=== PATIENT | female | born 1965 | race Caucasian/White ===

== ENCOUNTER 2021-05-30 16:52 | Emergency (ER) | payer OTHER, SELFPAY ==
--- NOTE | ~2021-05-30 | US_ITS ---
EXAMINATION: US ABDOMEN LIMITED CLINICAL INFORMATION: Elevated bilirubin. Abdominal pain, vomiting. Evaluate gallbladder. COMPARISON: None TECHNIQUE: Real-time imaging of the right upper quadrant abdominal viscera. FINDINGS: PANCREAS: Normal. LIVER: Normal. The liver is normal in size. The liver contour is normal. Parenchymal echogenicity is normal. No focal hepatic lesion. There is no intrahepatic biliary duct dilatation seen. GALLBLADDER: There is a 2 mm nondependent noncalcified structure adherent to the wall of the gallbladder consistent with a polyp. The gallbladder is physiologically distended without evidence of stones, sludge, wall thickening or pericholecystic fluid. COMMON BILE DUCT: Normal in caliber measuring 0.2 cm in diameter. RIGHT KIDNEY: There is a 6 mm anechoic right upper pole renal cyst for which no imaging follow-up is recommended. No hydronephrosis. No renal calculi or solid parenchymal lesions. The kidney measures 9.6 cm in maximum dimension. FREE FLUID: None. US/US abdomen limited IMPRESSION: No gallstones. No biliary ductal dilatation. 2 mm gallbladder wall polyp. There are differing management algorithms advocated for in the radiology literature for small gallbladder wall polyps of this size. Some suggest annual ultrasound follow-up while others suggest no follow-up is needed.
[2021-05-30 18:51] VITALS: BP 133/52; PULSE 70; RESP 20; TEMP 36.7; O2SAT 98; BMI 18.3
[2021-05-30 19:59] VITALS: BP 131/66; PULSE 70
[2021-05-30 20:00] VITALS: BP 142/72; PULSE 72
[2021-05-30 20:04] VITALS: BP 124/77; PULSE 73
--- NOTE | 2021-05-30 20:14 | ED_ITS ---
HPI - Nausea/Vomiting/Diarrhea General Chief complaint: Nausea/Vomiting/Diarrhea Stated complaint: N V D Lightheaded Time Seen by Provider: 05/30/21 19:46 Source: patient and family Mode of arrival: ambulatory Limitations: no limitations History of Present Illness HPI Narrative: 55-year-old female with a past medical history of anxiety and depression here with complaints of nausea with dry heaves and diarrhea for the last 1 week. Patient tells me that she has been having depression and her doctor has trial 2 different antidepressants (lexapro, sertraline). Unfortunately both have caused nausea and vomiting. Since the 2nd medication she has had nausea and dry heaves. The patient denies any large amounts of vomiting. She has had 1-2 episodes of diarrhea a day. She has been feeling lightheaded with movement for the last 2 days and feels like she is dehydrated. She denies any abdominal pain, fevers, chills or urinary symptoms. Associated nausea: Yes Related Data Allergies Allergy/AdvReac Type Severity Reaction Status Date / Time No Known Allergies Allergy Verified 05/30/21 18:50 Review of Systems Review of Systems: Yes all other systems are reviewed and are negative Constitutional: Constitutional: Reports no additional constitutional complaints, Denies body ache(s), Denies chills, Denies fever(s), Denies headache(s) and Denies weakness Eyes: Eyes: Reports no additional eye complaints and Denies change in vision ENT: Reports system reviewed and no additional complaints, except as doclinette carpenter, Reports dizziness, Denies headache(s), Denies nasal congestion, Denies nasal discharge and Denies neck pain Cardiovascular: Cardiovascular: Reports no additional cardiovascular complaints, Denies chest pain, Denies leg edema and Denies dyspnea Respiratory: Respiratory: Reports no additional respiratory complaints, Denies cough and Denies dyspnea Gastrointestinal: Gastrointestinal: Reports no additional gastrointestinal complaints, Reports abdominal pain, Reports diarrhea, Reports nausea and Denies vomiting Comments: Dry heaves Genitourinary: Genitourinary: Reports no additional female genitourinary complaints and Denies urinary incontinence Musculoskeletal: Musculoskeletal: Reports no additional musculoskeletal complaints, Denies back pain, Denies arthralgias, Denies joint swelling, Denies neck pain, Denies numbness and Denies tingling Integumentary/Breasts: Skin/Breast: Reports system reviewed and no additional complaints, except as docu and Denies rash Neurologic: Reports system reviewed and no additional complaints, except as documented, Denies Abnormal speech present, Reports dizziness, Denies headache(s), Denies numbness, Denies tingling and Denies weakness PMFSH Past Medical History Attestation statement: The following information was validated with the patient. Source: old records reviewed and nursing notes reviewed Medical History Anxiety Social History Social History Advance Directives: No Advance Directives Information Provided: No Patient : No Physical Exam Vital Signs: Vital Signs: Last Vital Signs Temp 98.0 F 05/30/21 22:28 Pulse 60 05/30/21 22:28 Resp 16 05/30/21 22:28 BP 135/71 05/30/21 22:28 Pulse Ox 98 05/30/21 22:28 Body Mass Index 18.3 Const: General: cooperative and anxious Orientation/consciousness: patient oriented x3 Limitations: no limitations HENMT: Head: Yes normal to inspection Ears: hearing grossly normal bilaterally General nose exam: Normal external nose present Face and sinus: Yes normal facial exam Mouth: Normal oral and palatal mucosa present Throat: Yes posterior oropharynx normal Eyes: General: appearance normal, both eyes and all related structures Pupils: Equal, round and reactive pupils present Neck: Neck: Yes normal visual inspection Chest: Chest palpation & inspection: normal inspection of the chest Resp: Effort & Inspection: normal respiratory effort Auscultation: clear to auscultation bilaterally Cardio: Rate: regular rate Rhythm: regular rhythm Peripheral pulses: Peripheral pulses 2+ throughout GI: Inspection: Yes normal to inspection Palpation (GI): Soft to palpation and nontender Auscultation: normal bowel sounds Back/Spine/Pelvis: Thoracic/Lumbar Spine: thoracic and lumbar spine normal to inspection Skin: General skin exam: no rashes or lesions noted Neuro: General: patient oriented x3, no focal motor deficits and normal sensation to monofilament Cranial nerves: Yes Equal, round and reactive pupils present Cognition (Neuro): normal cognition Speech: No Abnormal speech present Gait exam (Neuro): Normal gait present Motor exam (neuro): 5/5 motor strength present throughout Extrem: General: Yes normal to inspection, Yes no pedal edema and Yes no calf tenderness Course Course Course Narrative: 55-year-old female here with complaints of nausea, dry heaves and diarrhea for the last week after starting a new antidepressant (lexapro, sertraline). Also feeling lightheaded and dehydrated the last few days. Exam is benign. Hemodynamically stable. No focal abdominal pain on exam. Will check labs, place PIV for antiemetic and normal saline bolus and reassess -labs show mildly elevated total bili. I did discuss this with the patient. May be medication related. Repeat abdominal exam benign. There is no pain on exam or rebound or guarding. Low suspicion for intra-abdominal pathology. Discussed with patient imaging versus observation and she would prefer to hold on any imaging at this time. Does not want a CT scan. 2300-urine unremarkable. I went to reexamine the patient. She now tells me she has upper abdominal pain and more nausea. Will check abdominal ultrasound. Will give PPI, antiemetic and repeat normal saline bolus 2350-US shows IMPRESSION: No gallstones. No biliary ductal dilatation. ? 2 mm gallbladder wall polyp. There are differing management algorithms advocated for in the radiology literature for small gallbladder wall polyps of this size. Some suggest annual ultrasound follow-up while others suggest no follow-up is needed. Spoke to patient. She tells me that her pain is improved but she still has some nausea and had several episodes of dry heaving in the room. At this point she does not feel like she can hold down any p.o. fluids. Will re-medicate for nausea and reassess. ?gastritis from recent medication changes. We again discussed imaging vs observation. She would like to hold on CT scan at this time and see if this next round of medications works. 0030-Sign out to Karli JOEL pending above MDM - Nausea/Vomiting/Diarrhea MDM Narrative Medical decision making narrative: Orthostasis Electrolyte abnormality due to GI losses Medical Records Attestation: I reviewed the patient's medical records. Lab Data Attestation: I reviewed the patient's lab results. Result diagrams: 05/30/21 20:12 05/30/21 20:12 Labs: Lab Results 05/30/21 05/30/21 05/30/21 Range/Units 20:12 20:12 20:12 WBC 10.0 (4.8-10.8) X10*3/uL RBC 5.00 (4.20-5.50) X10*6/uL Hgb 15.7 (12.0-16.0) g/dl Hct 45.6 (37-47) % MCV 91.2 (80-98) fL MCH 31.4 (27.0-33.0) pg MCHC 34.4 (31.0-35.0) g/dl RDW 12.1 (11.0-16.0) % Plt Count 274 (160-400) X10*3/uL MPV 8.4 L (9.4-12.3) fL Immature Gran % (Auto) 0.2 (0.0-0.4) % Neut % (Auto) 59.5 (45-73) % Lymph % (Auto) 28.3 (20-40) % [place] % (Auto) 11.0 (2-11) % Eos % (Auto) 0.7 (0-4) % Baso % (Auto) 0.3 (0-2) % Lymph # (Auto) 2.8 (1.2-4.9) X10*3/uL [place] # (Auto) 1.1 (0.1-1.2) X10*3/uL Eos # (Auto) 0.1 (0.0-0.4) X10*3/uL Baso # (Auto) 0.0 (0.0-0.2) X10*3/uL Abs Immat Gran (auto) 0.02 (0.00-0.03) X10*3/uL Absolute Neuts (auto) 5.9 (2.0-8.3) X10*3/uL Absolute Nucleated RBC 0.000 (0.0-0.012) X10*3/uL Nucleated RBC % (auto) 0.0 (0.0-0.2) /100WBC Sodium 141 (135-145) mmol/L Potassium 4.1 (3.3-5.1) mmol/L Chloride 104 (96-108) mmol/L Carbon Dioxide 26 (22-29) mmol/L Anion Gap 15 (12-20) BUN 15 (9-16) mg/dL Creatinine 1.02 (0.5-1.4) mg/dL Estim Creat Clear Calc 48.1 Estimated GFR 56 Random Glucose 98 (60-115) mg/dL Calcium 10.4 H (8.4-10.2) mg/dL Magnesium 2.1 (1.6-2.6) mg/dL Total Bilirubin 4.0 H (0.0-1.0) mg/dL Direct Bilirubin 0.8 H (0.0-0.5) mg/dL AST 15 (5-31) U/L ALT 11 (0-31) U/L Alkaline Phosphatase 54 (39-117) U/L Total Protein 7.6 (6.5-8.0) g/dL Albumin 4.6 (3.5-5.0) g/dL Lipase 28 (8-78) U/L Urine Color Urine Appearance Urine pH (5.0-8.0) Ur Specific [place] (1.005-1.025) Urine Protein (NEG-TRACE) MG/DL Urine Glucose (UA) (NEG) MG/DL Urine Ketones (NEG) MG/DL Urine Blood (NEG) Urine Nitrite (NEG) Ur Leukocyte Esterase (NEG) Urine RBC Urine WBC Ur Squamous Epith Cells Urine Bacteria 05/30/21 Range/Units 21:22 WBC (4.8-10.8) X10*3/uL RBC (4.20-5.50) X10*6/uL Hgb (12.0-16.0) g/dl Hct (37-47) % MCV (80-98) fL MCH (27.0-33.0) pg MCHC (31.0-35.0) g/dl RDW (11.0-16.0) % Plt Count (160-400) X10*3/uL MPV (9.4-12.3) fL Immature Gran % (Auto) (0.0-0.4) % Neut % (Auto) (45-73) % Lymph % (Auto) (20-40) % [place] % (Auto) (2-11) % Eos % (Auto) (0-4) % Baso % (Auto) (0-2) % Lymph # (Auto) (1.2-4.9) X10*3/uL [place] # (Auto) (0.1-1.2) X10*3/uL Eos # (Auto) (0.0-0.4) X10*3/uL Baso # (Auto) (0.0-0.2) X10*3/uL Abs Immat Gran (auto) (0.00-0.03) X10*3/uL Absolute Neuts (auto) (2.0-8.3) X10*3/uL Absolute Nucleated RBC (0.0-0.012) X10*3/uL Nucleated RBC % (auto) (0.0-0.2) /100WBC Sodium (135-145) mmol/L Potassium (3.3-5.1) mmol/L Chloride (96-108) mmol/L Carbon Dioxide (22-29) mmol/L Anion Gap (12-20) BUN (9-16) mg/dL Creatinine (0.5-1.4) mg/dL Estim Creat Clear Calc Estimated GFR Random Glucose (60-115) mg/dL Calcium (8.4-10.2) mg/dL Magnesium (1.6-2.6) mg/dL Total Bilirubin (0.0-1.0) mg/dL Direct Bilirubin (0.0-0.5) mg/dL AST (5-31) U/L ALT (0-31) U/L Alkaline Phosphatase (39-117) U/L Total Protein (6.5-8.0) g/dL Albumin (3.5-5.0) g/dL Lipase (8-78) U/L Urine Color YELLOW Urine Appearance CLEAR Urine pH 7.5 (5.0-8.0) Ur Specific [place] 1.010 (1.005-1.025) Urine Protein NEG (NEG-TRACE) MG/DL Urine Glucose (UA) NEG (NEG) MG/DL Urine Ketones NEG (NEG) MG/DL Urine Blood NEG (NEG) Urine Nitrite NEG (NEG) Ur Leukocyte Esterase NEG (NEG) Urine RBC TNP Urine WBC TNP Ur Squamous Epith Cells Not Reportable Urine Bacteria TNP Imaging Data US - abdomen: Attestation: I personally reviewed and interpreted this imaging study as follows: Radiologist's impression: IMPRESSION: No gallstones. No biliary ductal dilatation. ? 2 mm gallbladder wall polyp. There are differing management algorithms advocated for in the radiology literature for small gallbladder wall polyps of this size. Some suggest annual ultrasound follow-up while others suggest no follow-up is needed. Discharge Plan Discharge Clinical Impression: Abdominal pain, Vomiting Patient Disposition: Home, Self-Care Instructions: Acute Nausea and Vomiting (ED), Abdominal Pain (ED) Additional Instructions: hold your antidepressants Speak to your psychiatrist about this [place] diet Referrals: Kimmy Pelletier NP [Primary Care Provider] - 2 days Dell Hubbard [Physician] - 2 days
[2021-05-30] MEDS: 0.9 % Sodium Chloride 1,000 ML 999 ML IV ×2 (20:15→22:52)
[2021-05-30] MEDS: ondansetron HCL 4 MG/2 ML VIAL IVPUSH (20:15)
[2021-05-30 20:17] LABS: MANUAL DIFF FLAG NO
[2021-05-30 20:18] LABS: Basophils Percent Auto 0.3 % (0-2); Eosinophils Absolute Auto 0.1 X10*3/uL (0.0-0.4); Eosinophils Percent Auto 0.7 % (0-4); Hematocrit 45.6 % (37-47); Hemoglobin 15.7 g/dl (12.0-16.0); Imm Gran Abs Auto 0.02 X10*3/uL (0.00-0.03); Imm Gran Pct Auto 0.2 % (0.0-0.4); Lymphocytes Absolute Auto 2.8 X10*3/uL (1.2-4.9); Lymphocytes Percent Auto 28.3 % (20-40); Mean Corpuscular HGB Conc 34.4 g/dl (31.0-35.0); Mean Corpuscular Hemoglobin 31.4 pg (27.0-33.0); Mean Corpuscular Volume 91.2 fL (80-98); Mean Platelet Volume 8.4 fL (9.4-12.3); Monocytes Absolute Auto 1.1 X10*3/uL (0.1-1.2); Neutrophils Absolute Auto 5.9 X10*3/uL (2.0-8.3); Neutrophils Percent Auto 59.5 % (45-73); Platelet Count 274 X10*3/uL (160-400); Red Cell Distribution Width 12.1 % (11.0-16.0)
[2021-05-30 20:34] LABS: Alanine Aminotransferase 11 U/L (0-31); Albumin Level 4.6 g/dL (3.5-5.0); Alkaline Phosphatase 54 U/L (39-117); Anion Gap 15 (12-20); Aspartate Amino Transferase 15 U/L (5-31); Bilirubin Direct 0.8 mg/dL (0.0-0.5); Blood Urea Nitrogen 15 mg/dL (9-16); Calcium 10.4 mg/dL (8.4-10.2); Carbon Dioxide 26 mmol/L (22-29); Chloride 104 mmol/L (96-108); Creatinine Clr Calc Pharmacy 48.1; Estimated Glomerular Filt Rate 56; Glucose Random 98 mg/dL (60-115); Magnesium 2.1 mg/dL (1.6-2.6); Potassium 4.1 mmol/L (3.3-5.1); Sodium 141 mmol/L (135-145); Total Protein 7.6 g/dL (6.5-8.0)
[2021-05-30 21:39] LABS: UACC Culture Trigger YES
[2021-05-30 21:43] LABS: Appearance Urine CLEAR; Color Urine YELLOW
[2021-05-30 21:44] LABS: Glucose Urine UA NEG (NEG); PH 7.5 (5.0-8.0); Urine Blood NEG (NEG)
[2021-05-30 21:45] LABS: Leukocyte Esterase Urine NEG (NEG); Nitrite Urine NEG (NEG); Urine Ketones NEG (NEG); Urine Protein NEG (NEG-TRACE)
[2021-05-30 22:28] VITALS: BP 135/71; PULSE 60; RESP 16; TEMP 36.7; O2SAT 98
[2021-05-30] MEDS: Famotidine/PF 20 MG/2 ML VIAL IVPUSH (22:52)
[2021-05-31] MEDS: diphenhydrAMINE HCL 50 MG/ML VIAL 25 MG IVPUSH (00:03)
[2021-05-31 00:05] LABS: Lipase 28 U/L (8-78)
[2021-05-31] MEDS: Metoclopramide HCl 10 MG/2 ML VIAL IVPUSH (00:06)
[2021-05-31 01:50] VITALS: BP 110/60; PULSE 56; TEMP 36.6; O2SAT 97
== END 2021-05-31 02:14 | disposition home or self-care (01) ==
PROVIDERS: Nurse Practitioner Family; Emergency Provider Emergency Medicine; PCP Nurse Practitioner Family
DX: R11.2 Nausea with vomiting, unspecified (principal); R10.9 Unspecified abdominal pain; R42 Dizziness and giddiness; Z79.899 Other long term (current) drug therapy
CPT/HCPCS: 36415; 76705; 80048; 80076; 81001; 83690; 83735; 85025; 96361; 96374; 96375; 99284; J1200; J2405; J2550; J2765